=== PATIENT | male | born 1940 | race Caucasian/White ===

== ENCOUNTER 2018-11-07 12:52 | Outpatient (CLI) | payer MEDICARE ==
[~2018-11-07] VITALS: Ht 177.8 cm; Wt 104.4 kg
[2018-11-07] MEDS ORDERED: DOXA2TAB2 PO (13:12)
[2018-11-07] MEDS ORDERED: INSTAFLEX PO (13:12)
[2018-11-07] MEDS ORDERED: FISH1CAP15 PO (13:12)
[2018-11-07] MEDS ORDERED: AMLO10TA7 PO (13:12)
[2018-11-07] MEDS ORDERED: CIDE300T3 PO (13:12)
[2018-11-07] MEDS ORDERED: TURM500C4 PO (13:12)
[2018-11-07] MEDS ORDERED: LOSA1TAB26 PO (13:12)
[2018-11-07 13:25] VITALS: BP 130/73
[2018-11-07 14:19] LABS: BASOPHILS % (AUTO) 0 % (0-10); BILIRUBIN,URINE NEGATIVE (NEGATIVE); CLARITY,URINE CLEAR; COLOR,URINE YELLOW; EOSINOPHILS # (AUTO) 0.3 10^3/uL (0.0-0.3); EOSINOPHILS % (AUTO) 5 % (0-10); GLUCOSE, URINE (UA) NEGATIVE (NEGATIVE); HEMATOCRIT 38 % (40-54); HEMOGLOBIN 12.9 G/DL (13.3-17.7); KETONES,URINE NEGATIVE (NEGATIVE); LEUKOCYTE ESTERASE ,URINE NEGATIVE (NEGATIVE); LYMPHOCYTES # (AUTO) 1.2 X 10^3 (1.0-4.0); LYMPHOCYTES % (AUTO) 19 % (12-44); MEAN CORPUSCULAR HEMOGLOBIN 29 PG (25-34); MEAN CORPUSCULAR HGB CONC 34 G/DL (32-36); MEAN CORPUSCULAR VOLUME 87 FL (80-99); MEAN PLATELET VOLUME 10.5 FL (7.4-10.4); MONOCYTES # (AUTO) 0.7 X 10^3 (0.0-1.0); MONOCYTES % (AUTO) 11 % (0-12); NEUTROPHILS % (AUTO) 65 % (42-75); NITRITE,URINE NEGATIVE (NEGATIVE); PH,URINE 7 (5-9); PLATELET COUNT 168 10^3/uL (130-400); PROTEIN,URINE NEGATIVE (NEGATIVE); RED CELL DISTRIBUTION WIDTH 13.1 % (10.0-14.5); UROBILINOGEN,URINE NORMAL (NORMAL); WHITE BLOOD COUNT 6.2 10^3/uL (4.3-11.0)
[2018-11-07 14:34] LABS: PROTHROMBIN TIME PATIENT 13.3 SEC (12.2-14.7)
[2018-11-07 14:40] LABS: ALBUMIN 3.8 GM/DL (3.2-4.5); BILIRUBIN,TOTAL 0.4 MG/DL (0.1-1.0); CREATININE SERUM 1.44 MG/DL (0.60-1.30); TOTAL PROTEIN 6.8 GM/DL (6.4-8.2)
[2018-11-07 14:41] LABS: BACTERIA,URINE NEGATIVE /HPF; SQUAMOUS EPITHELIAL CELL,UR 0-2 /HPF
[2018-11-07 14:56] LABS: ERYTHROCYTE SEDIMENTATION RATE 13 MM/HR (0-30)
[2018-11-07] MEDS ORDERED: ALLO100T PO (15:12)
--- NOTE | 2018-11-07 17:01 | Diagnostic Imaging Report ---
INDICATION: Preop for right total knee replacement. TIME OF EXAM: 1:55 p.m. COMPARISON: Comparison is made with prior chest from 11/02/2007. The heart size is normal. The pulmonary vascularity is unremarkable. The lungs are clear. No infiltrate, effusion or pneumothorax is detected. IMPRESSION: No acute cardiopulmonary process is detected. Dictated by: Dictated on workstation # [id number]
== END 2018-11-07 15:00 | disposition home or self-care (01) ==
LOC: PREOP 12:52
PROVIDERS: ATTEND Orthopaedic Surgery
DX: Z01.812 Encounter for preprocedural laboratory examination (principal); Z01.811 Encounter for preprocedural respiratory examination; Z01.810 Encounter for preprocedural cardiovascular examination; M17.11 Unilateral primary osteoarthritis, right knee; R53.83 Other fatigue
CPT/HCPCS: 36415; 71046; 80053; 81000; 85025; 85610; 85652; 86850; 86900; 86901; 87081

== ENCOUNTER 2018-11-16 05:54 | Inpatient (IN) | payer MEDICARE ==
--- NOTE | 2018-11-06 16:41 | HISTORY AND PHYSICAL ---
DATE OF SERVICE: ADMISSION HISTORY AND PHYSICAL DATE OF ADMISSION: 11/16/2018. This will be for inpatient admission on 11/16/2018 for right total knee arthroplasty. The patient will require regular inpatient admission due to pain management, mobility issues and requirement for inpatient physical therapy. HISTORY OF PRESENT ILLNESS: The patient is a 78-year-old gentleman with progressively worsening right knee pain. He has undergone treatment with injections and arthroscopy without relief. He reports progressively worsening right medial knee pain with swelling and he reports activity limitations. He denies back pain. He denies paresthesias. He previously underwent a left total knee arthroplasty with good results. Due to functional impairment and failure to improve with conservative measures, the patient elected to proceed with surgical intervention. REVIEW OF SYSTEMS: No chest pain, no shortness of breath, no dysuria. PAST MEDICAL HISTORY: Varicose veins, hypertension, restless leg syndrome, left total knee arthroplasty, colon cancer, bilateral shoulder surgery. FAMILY HISTORY: Noncontributory. PRIMARY CARE PROVIDER: Dr. Maki. MEDICATIONS: 1. Hyzaar. 2. Verapamil. 3. Garlic oil. 4. Fish oil. 5. Losartan. 6. Verapamil. 7. Allopurinol. 8. Doxazosin. 9. Percocet. 10. Amlodipine. ALLERGIES: NORVASC AND BEE STINGS. SOCIAL HISTORY: The patient drinks 1 to 2 beers weekly. Denies tobacco use. RADIOGRAPHS: Reveal complete loss of medial joint space with moderate narrowing of his patellofemoral joint space. IMPRESSION: Right knee osteoarthritis radiographically. PHYSICAL EXAMINATION: GENERAL: The patient is a well-developed, well-nourished, in no acute distress. HEENT: Normocephalic and atraumatic. Pupils are equal, round and reactive to light. Oropharynx is clear. NECK: Supple, no lymphadenopathy. LUNGS: Clear to auscultation bilaterally. HEART: Regular rate and rhythm. ABDOMEN: Soft, nontender, nondistended. EXTREMITIES: The right knee demonstrates moderate effusions, tender along his medial joint line, has pain medially with Tomy's. Range of motion is 0/2/125. He has mild varus alignment and ambulates with an antalgic gait. There is no varus valgus laxity. Negative anterior and posterior drawer. IMPRESSION: Severe right knee osteoarthritis, unresponsive to conservative measures. PLAN: Right total knee arthroplasty. The risk, benefits, options, ramifications and recovery have been discussed at length with the patient. He understands and wishes to proceed. Job ID: [id number] DocumentID: [id number] Dictated Date: 11/06/2018 16:29:05 Metal Filer Date: 11/06/2018 16:41:21 Dictated By: TONY MATHEWS MD
--- NOTE | 2018-11-07 15:13 | NUR ---
PREOP SENT OVER A COPY OF THE PATIENTS MEDICATION LIST. I CALLED [facility] TO VERIFY THE PRESCRIPTIONS. [facility] FILLED: 10-24-18 DOXAZOSIN 2MG DAILY #90 10-24-18 AMLODIPINE 10MG DAILY #90 09-20-18 LOSARTAN HCTZ 100-12.5MG DAILY #90 09-20-18 ALLOPURINOL 100MG DAILY #90 OTC MEDICATIONS: FISH OIL 1200MG BID ORGANIC CIDER VINEGAR 1-2 TSP DAILY INSTAFLEX 1 CAP DAILY TURMERIC 500MG DAILY
[2018-11-16] VITALS (11 sets, daily range): BP systolic 109–168; BP diastolic 57–90
[~2018-11-16] VITALS: Ht 177.8 cm; Wt 102.5 kg
[~2018-11-16 05:54] MED LIST: ALLO100T PO; AMLO10TA7 PO; CIDE300T3 PO; DOXA2TAB2 PO; FISH1CAP15 PO; INSTAFLEX PO; LOSA1TAB26 PO; TURM500C4 PO
[2018-11-16] MEDS ORDERED: CEFUROXIME INJECTION 1,500 MG in WATER (STERILE) FOR INJECTION 15 ML IV ONE (06:30)
[2018-11-16] MEDS ORDERED: MIDAZOLAM 2 MG/2 ML (VERSED) VIAL ONE (06:41)
[2018-11-16] MEDS: LACTATED RINGERS 1,000 ML IV PRN ×2 (06:45→08:33)
[2018-11-16] MEDS ORDERED: fentaNYL INJECTION 100 MCG/2 ML AMP ONE (07:07)
[2018-11-16] MEDS ORDERED: DEXAMETHASONE 10 MG/ML (DECADRON) 1 ML VIAL ONE (07:07)
[2018-11-16] MEDS ORDERED: LIDOCAINE PF 2% 5 ML (XYLOCAINE) VIAL ONE ×2 (07:07→09:05)
[2018-11-16] MEDS ORDERED: proPOfol 200 MG/20 ML (DIPRIVAN) VIAL IV ONE (07:07)
[2018-11-16] MEDS ORDERED: ONDANSETRON 4 MG/2 ML (SDV) Z0FRAN ONE (07:07)
[2018-11-16] MEDS ORDERED: TRANEXAMIC ACID 100 MG/ML 10 ML INJECTION IV ONE (07:09)
[2018-11-16] MEDS ORDERED: SEVOFLURANE (ULTANE) 15 ML INHAL SOLN ONE ×5 (07:21→09:31)
[2018-11-16] MEDS ORDERED: OXYC1TAB87 PO (07:28)
[2018-11-16] MEDS ORDERED: diphenhydrAMINE 50 MG/ML INJ (BENADRYL) IVP PRN (07:30)
[2018-11-16] MEDS ORDERED: ACETAMINOPHEN 325 MG TABLET PO PRN (07:30)
[2018-11-16] MEDS ORDERED: INTRA-ARTICULAR IU ONE ×5 (07:30)
[2018-11-16] MEDS ORDERED: morphine PCA 100 MG/100 ML BAG IV PRN (07:30)
--- NOTE | 2018-11-16 07:30 | D/C HH Face to Face Order ---
D/C Face to Face Orders Reconcile Patient Problems Problems Reviewed?: Yes Instructions for Patient [facility], Patient Instructions/FollowUp: three weeks Physician to follow Patient: three weeks Discharge Diet for Home: No Restrictions, Regular Diet Patient Data-Allergies,Ht & Wt Patient Allergies: Coded Allergies: amlodipine (Verified Allergy, Severe, ANAPHYLAXIS, 11/07/18) Height (Feet): 5 Height (Inches): 10.00 Weight (Pounds): 226 Weight (Ounces): 1.0 Home Health Need/Face to Face Date of Face to Face: Nov 16, 2018 Clinical Findings: Instability, Muscle weakness, Pain with ambulation, Unsteady gait I have seen Pt [id number]: Yes Discharged To: Home Diagnosis/Conditions: right total knee arthroplasty Patient is Homebound due to: [place] fall risk due to instabilty, Muscle weakness, Pain w/ambulation Homebound Status Due to the above stated illness, injury or surgical procedure (medical condition or diagnosis) and associated clinical findings, the patient is homebound because of his/her inability to leave home except with aid of a phillips pportive device and/or person AND leaving the home requires a considerable and taxing effort or is medically contraindicated. Pt req the following assistanc: Walker Home Health Nursing Orders Home Health Services Order: Physical Therapy-Evaluate & Treat DC right knee jd and apply steri strips 11/30/18 Home Health Infusion Therapy Line Start Date: Nov 16, 2018 Therapy Orders Therapy Orders: Physical Therapy, PT to assess for OT Therapy Specific Orders: Eval assistive deivces, Teach enviro modifications/safety, Gait training, Increase strength/endurance, Provider maintenance therapy, Restore ROM Certify Stmt I certify that this patient is under my care and that I, a nurse practitioner or a physician; a construction project assistant working with me, had a face to face encounter that - meets the physician face to face encounter requirements with this patient as sagrario vee. TONY MATHEWS MD Nov 16, 2018 07:30
--- NOTE | 2018-11-16 07:32 | Progress Note-Pre Operative ---
Pre-Operative Progress Note H&P Reviewed The H&P was reviewed, patient examined and no changes noted. Date Seen by Provider: Nov 16, 2018 Time Seen by Provider: 07:15 Date H&P Reviewed: Nov 16, 2018 Time H&P Reviewed: 07:11 Pre-Operative Diagnosis: right knee primary osteoarthritis TONY MATHEWS MD Nov 16, 2018 07:32
--- NOTE | 2018-11-16 07:33 | Progress Note-Post Operative ---
Post-Operative Progess Note Surgeon (s)/Blending Tank Tender (s) Surgeon TONY MATHEWS MD Blending Tank Tender: Cornelius Godinez Pre-Operative Diagnosis right knee primary osteoarthritis Post-Operative Diagnosis right knee primary osteoarthritis Procedure & Operative Findings Date of Procedure 11/16/18 Procedure Performed/Findings right total knee arthroplasty Anesthesia Type GETA Estimated Blood Loss Estimated blood loss (mL): minimal Specimens/Packing Specimens Removed none Packing: none TONY MATHEWS MD Nov 16, 2018 07:32
[2018-11-16] MEDS ORDERED: fentaNYL INJECTION 100 MCG/2 ML AMP IVP ONE (08:30)
[2018-11-16] MEDS ORDERED: morphine INJ 10 MG/ML 1ML (SYR OR VIAL) IVP ONE (08:30)
[2018-11-16] MEDS ORDERED: ONDANSETRON 4 MG/2 ML (SDV) Z0FRAN IVP PRN (08:30)
[2018-11-16] MEDS ORDERED: MEPERIDINE (DEMEROL) INJ 50 MG/ML IVP ONE (08:30)
[2018-11-16] MEDS ORDERED: ROCURONIUM 10 MG/ML 5 ML SYRINGE IV ONE (09:05)
[2018-11-16] MEDS ORDERED: BUPIVACAINE 0.5% 30 ML (SENSORCAINE) VIAL ONE (09:06)
--- NOTE | 2018-11-16 10:16 | Diagnostic Imaging Report ---
Indication: Right knee replacement. Time of exam 9:50 AM 2 views right knee demonstrate postop changes of total knee arthroplasty. Prosthetic elements are in good position without fracture or loosening. Overlying skin jd are noted. Impression: Satisfactory postop appearance to the right knee. Dictated by: Dictated on workstation # [id number]
--- NOTE | 2018-11-16 10:41 | Progress Note ---
Standard Progress Note Progress Notes/Assess & Plan Date Seen by a Provider: Nov 16, 2018 Time Seen by a Provider: 10:37 Progress/Assessment & Plan post op check no complaints radiographs--HW well positioned without fracture RLE-- 2plus DP pulse with brisk cap refill. Intact DF and PF of toes and ankle. Intact sensation throughout s/p RTKA mobilize as able TONY MATHEWS MD Nov 16, 2018 10:41
--- NOTE | 2018-11-16 10:47 | NUR ---
OSCAR BOUDREAUX SR admitted to room OR-1, with an admitting diagnosis of POST OP RIGHT TOTAL KNEE REPLACEMENT, on 11/16/18 from surgery, accompanied by and recovery nurse Carolyne DOMINGUEZ .OSCAR BOUDREAUX SR introduced to surroundings, call light, bed controls, phone, TV, temperature control, lights, meal times, smoking policy, visitor policy, side rail policy, bathrooms and showers. Patient Rights given to patient in the handbook. OSCAR BOUDREAUX SR verbalizes understanding that [facility] is not responsible for the loss or damage to any personal effects or valuables that are kept in the patients posession during their hospitalization. The following Patient Care Plans and discharge plan were discussed with the patient . OSCAR BOUDREAUX SR verbalizes understanding of Interdisciplinary Patient Education. Patient and family were informed about the Rapid Response Team and its purpose.
[2018-11-16] MEDS ORDERED: PATIENT MAY USE OWN MEDS, ALL MC SCH (11:15)
[2018-11-16] MEDS: NS IV 1000 ML 1,000 ML IV SCH ×2 (11:35→17:40)
[2018-11-16] MEDS: SENNA W/DOCUSATE (SENOKOT S) TABLET PO SCH ×2 (11:35→20:25)
--- NOTE | 2018-11-16 11:37 | NUR ---
IRF Evaluation Order received to evaluate patient for the ARU. Awaiting therapy evaluation(s) in order to formulate a determination. Thank you for this referral.
--- NOTE | 2018-11-16 12:34 | OPERATIVE REPORT ---
DATE OF SERVICE: 11/16/2018 PREOPERATIVE DIAGNOSIS: Right knee primary osteoarthritis. POSTOPERATIVE DIAGNOSIS: Right knee primary osteoarthritis. PROCEDURE: Right total knee arthroplasty. SURGEON: Nick Mathews MD FLAG SIGNALER: Cornelius Godinez, who assisted throughout the procedure and closed the incision. ANESTHESIA: General endotracheal by Cornelius Coe CRNA. TOURNIQUET TIME: Approximately, 70 minutes at 300 mmHg. ESTIMATED BLOOD LOSS: Minimal. DRAINS: None. COMPLICATIONS: None. POSTOPERATIVE PLAN: Routine protocol. The patient was transported to the recovery room awake and in stable condition. MATERIALS: Microport cemented size 6 femur, cemented size 6+ tibia with a 10 mm insert and cemented size 35 patellar button. STATEMENT OF MEDICAL NECESSITY: The patient is a 78-year-old gentleman with longstanding progressive right knee pain. Radiographs revealed severe medial and patellofemoral arthrosis. He had undergone treatment with injections, anti-inflammatories and rest without relief. Due to functional impairment and failure to improve with conservative measures, the patient elected to proceed with surgical intervention. DESCRIPTION OF PROCEDURE: After risks and benefits of procedure were discussed and questions were answered, an informed consent was signed and placed on chart. The operative site was confirmed in the preoperative holding area initialed by the surgeon. The patient was then transported to the operating room and after adequate levels of general endotracheal anesthetic were obtained, a timeout was called confirming the operative site. The right lower extremity was prepped and draped in the usual sterile fashion with the leg elevated, tourniquet was inflated to 300 mmHg. Standard anterior approach was utilized. Hemostasis was obtained with cautery. Medial parapatellar arthrotomy was performed leaving 1 cm cuff on the patella for later reattachment. A portion of the fat pad was resected. A subperiosteal release was performed on the proximal medial tibia being careful to stay on the bony surface. The ACL was resected. Intramedullary guide was passed into the femur. The distal cutting block was placed and distal cut was made. Femur was sized to a size 6. 6 cutting block was placed parallel to the epicondylar axis and cuts were made from posterior to anterior. Subperiosteal release was then carefully performed on the posterior distal femur, being careful to stay on the bony surface. The intramedullary guide was then passed into the tibia. The cutting block was placed. The drop yony transected the intermalleolar axis and the cut was made. The 6+ baseplate was placed. The drop yony transected the intermalleolar axis and this was then prepared with the drill and keel punch. The femoral trial was placed and trochlear cut was made, 10 mm insert was placed. The patella was then prepared using the freehand technique by resecting 10 mm off the undersurface. A Peg guide was placed and peg holes were drilled. The patellar trial was placed. Knee was taken through range of motion. Full extension was easily obtained, 120 degrees of flexion with gravity was easily obtained. The patella tracked well. There was no anterior/posterior or medial/lateral laxity in flexion or extension. The trials were removed. The joint was copiously irrigated with pulse lavage. Periarticular block was placed in the posterior capsule, medial and lateral retinaculum extensor mechanism and subcutaneous tissues. The bone ends were irrigated and dried. The tibial baseplate was cemented into position. Excessive cement was removed. The superior surface was irrigated and dried and the polyethylene insert was placed. Distal femur was irrigated and dried and the femoral prosthesis was then cemented into position. Excessive cement was removed. The knee was brought in full extension until cement had cured. The undersurface of the patella was irrigated and dried. The patellar button was cemented into position. Excessive cement was removed. Once the cement had cured, the knee was taken through range of motion. Full extension was easily obtained, 120 degrees of flexion with gravity was easily obtained. There was no anterior/posterior or medial/lateral laxity in flexion or extension. The joint was further irrigated and the arthrotomy was closed with #2 Tevdek in [id number] interrupted fashion. Knee was flexed. The patella tracked well with no undue tension at the repair site. Subcutaneous tissues were irrigated using a total of 6 liters throughout the procedure. A 0 Vicryl was used for deep subcutaneous tissue, 2-0 Vicryl for the superficial subcutaneous tissue, jd used on the skin. A soft dressing was applied. The tourniquet was deflated and the patient was transported to the recovery room awake and in stable condition. Job ID: [id number] DocumentID: [id number] Dictated Date: 11/16/2018 09:30:38 Sugar Mixer Date: 11/16/2018 12:33:43 Dictated By: NICK MATHEWS MD
[2018-11-16] MEDS: oxyCODONE/APAP 5/325MG (PERCOCET 5) TABLET PO PRN ×2 (13:48→20:46)
--- NOTE | 2018-11-16 15:00 | Physical Therapy Evaluation ---
PT Evaluation-General Medical Diagnosis Admission Date Nov 16, 2018 at 05:54 Medical Diagnosis: right TKA Onset Date: Nov 16, 2018 Therapy Diagnosis Therapy Diagnosis: impaired mobility, strength, endurance, ROM Height/Weight Height (Feet): 5 Height (Inches): 10.00 Weight (Pounds): 226 Weight (Ounces): 1.0 Precautions Precautions/Isolations: Standard Precautions Weight Bear Status Right Lower Extremity: Right Weight Bearing/Tolerated Referral Physician: Cornelius Godinez Reason for Referral: Evaluation/Treatment Medical History Pertinent Medical History: HTN Additional Medical History varicose veins, shoulder surgery, Left TKA, RLS, colon CA Reviewed History: Yes Social History Home: Single Level Current Living Status: Spouse Entry Into Home: Stairs With Railing PT Steps Into Home: 7 Prior/Core FIM Prior Level of Function Therapy Code Descriptions/Definitions Functional [place] Measure: 0=Not Assessed/NA 4=Minimal Assistance 1=Total Assistance 5=Supervision or Setup 2=Maximal Assistance 6=Modified [place] 3=Moderate Assistance 7=Complete [place] Therapy Quality Codes: 6 Independent with activity with or without an assistive device 5 Patient requires set up or clean up by helper. Patient completes activity by themselves 4 Supervision or touching assist (CGA). [place] provide cues , steadying assist 3 The helper provides less than half the effort to complete the activity 2 The helper provides more than half the effort to complete the activity 1 Dependent. The helper does all the effort to complete an activity 7 Patient refused to complete or attempt activity 9 The patient did not perform the activity before the current illness or injury 88 Not attempted due to Medical conditions or safety concerns Functional Abilities and Goals: Independent: Patient completed the activities by him/herself, with or without an assistive device, with no assistance from a helper. Needed Some Help: Patient needed partial assistance from another person to complete activities. Dependent: A helper completed the activities for the patient. Unknown: Not Applicable: Bed Mobility: 6 Transfers (B,C,W/C) (FIM): 6 Gait: 6 Stairs: 6 Indoor Mobility (Ambulation): Independent Stairs: Independent Patient was using a SPC previously, sometimes a rolling walker PT Evaluation-Current Subjective Patient in bed pre tx, agrees to PT, has no complaints of pain at rest. Pt/Family Goals to be independent at home Objective Patient Orientation: Person, Place, Situation Attachments: Polar Pack, IV SCD's are donned but there is no machine to hook them up to ROM/Strength ROM Lower Extremities right knee flexion 80 degrees, extension +3 degrees Sensory Vision: Wears Glasses Hearing: Functional Sensation Right Lower Extremit: Intact Sensation Left Lower Extremity: Intact Transfers Therapy Code Descriptions/Definitions Functional [place] Measure: 0=Not Assessed/NA 4=Minimal Assistance 1=Total Assistance 5=Supervision or Setup 2=Maximal Assistance 6=Modified [place] 3=Moderate Assistance 7=Complete [place] Transfers (B, C, W/C) (FIM): 4 Scootin Rollin Supine to/from Sit: 5 Sit to/from Stand: 4 Patient dizzy upon sitting and standing, clears with a short rest break. Gait Mode of Locomotion: Walk Anticipated Mode of Locomotion: Walk Gait (FIM): 1 Distance: 8' Gait Level of Assist: 4 Gait Persons Needed: 1 Gait Assistive Device: FWW Comments/Gait Description Patient became light headed during ambulation after going about 4' and then went backwards to the bed to sit. He did have very good step through and heel strike bilaterally. Balance Sitting Static: Normal Sitting Dynamic: Normal Standing Static: Good Standing Dynamic: Good Treatment Supine TKA exercises x10 (AP, QS, HS, SAQ, SLR) Assessment/Needs Patient has impaired mobility, strength, endurance, ROM. He gets dizzy with supine to sit and standing. Patient in bed post tx with nurse call, phone, tray, CPM donned and fit to leg and set to 50/-2. Rehab Potential: Fair PT Short Term Goals Short Term Goals Time Frame: Nov 23, 2018 Transfers (B,C,W/C) (FIM): 5 Gait (FIM): 5 Gait Distance Comment: 150' Gait Level of Assist: 5 Gait Assistive Device: FWW PT Plan Problem List Problem List: Activity Tolerance, Functional Strength, Safety, Balance, Gait, Transfer, Bed Mobility, ROM Treatment/Plan Treatment Plan: Continue Plan of Care Treatment Plan: Bed Mobility, Education, Functional Activity Zachary, Functional Strength, Gait, Safety, Therapeutic Exercise, Transfers Treatment Duration: Nov 23, 2018 Frequency: 11 times per week Estimated Hrs Per Day: .25 hour per day Patient and/or Family Agrees t: Yes Safety Risks/Education Patient Education: Gait Training, Transfer Techniques, Reviewed Use of Ice, Correct Positioning, Safety Issues Teaching Recipient: Patient Teaching Methods: Demonstration, Discussion Response to Teaching: Reinforcement Needed Discharge Recommendations Plan Patient will perform bed mobility and transfer training, balance and endurance training, functional strengthening, stair training, gait training, and education, to improve functional mobility and independence at home. Therapy D/C Recommendations: Home w/ Family Support Time/GCodes Time In: 1425 Time Out: 1453 Total Billed Treatment Time: 18 Total Billed Treatment 1 visit JOHAN 18' POPEYE OLIVAREZ PT Nov 16, 2018 15:00
[2018-11-16] MEDS: ONDANSETRON 4 MG/2 ML (SDV) Z0FRAN IVP PRN ×2 (15:11→18:41)
[2018-11-16] MEDS: CEFUROXIME INJECTION 750 MG in WATER (STERILE) FOR INJECTION 10 ML IV SCH ×2 (15:12→22:37)
[2018-11-17] MEDS: NS IV 1000 ML 1,000 ML IV SCH ×2 (00:18→10:11)
[2018-11-17] MEDS: oxyCODONE/APAP 5/325MG (PERCOCET 5) TABLET PO PRN ×3 (02:04→16:42)
[2018-11-17 03:50] VITALS: BP 127/61
[2018-11-17] MEDS: MULTIVIT W/MINERALS TAB (THERAGRAN M) PO SCH (06:01)
[2018-11-17 06:03] LABS: HEMOGLOBIN 12.2 G/DL (13.3-17.7)
--- NOTE | 2018-11-17 07:58 | Progress Note ---
Standard Progress Note Progress Notes/Assess & Plan Date Seen by a Provider: Nov 17, 2018 Time Seen by a Provider: 07:52 Progress/Assessment & Plan POD1 Patient has no c/o. Reports mild nausea, but pain well controlled. Right knee incision well approximated with no warmth, erythema or drainage. Intact DF, PF and EHL. Calf soft/nontender with negative thelma's. Able to SLR and flex 50deg actively. VSS Impression: Doing well s/p Right TKA Plan: PT and mobilize DVT prophylaxix Dressing changed this morning Continue Zofran as needed for nausea Plan to D/C home tomorrow D/C IV today LENIN GARCIA Nov 17, 2018 07:58
[2018-11-17 08:00] VITALS: BP 123/63
[2018-11-17] MEDS: ASPIRIN E.C. 81 MG (ECOTRIN) TAB PO SCH ×2 (08:02→09:59)
[2018-11-17] MEDS: ENOXAPARIN 30 MG/0.3 ML (LOVENOX) SYR SC SCH ×2 (08:02→20:33)
[2018-11-17] MEDS: amLODIPine 10 MG (NORVASC) TAB PO SCH ×2 (08:03→08:10)
[2018-11-17] MEDS: SENNA W/DOCUSATE (SENOKOT S) TABLET PO SCH ×2 (08:03→20:29)
[2018-11-17] MEDS: doxAzosin 2 MG (CARDURA) TAB PO SCH ×2 (08:04→08:10)
[2018-11-17] MEDS: LOSARTAN HCTZ PO SCH ×2 (08:04→08:10)
[2018-11-17] MEDS: ALLOPURINOL 100 MG (ZYLOPRIM) TAB PO SCH ×2 (08:04→08:10)
[2018-11-17] MEDS: ONDANSETRON 4 MG/2 ML (SDV) Z0FRAN IVP PRN (08:31)
--- NOTE | 2018-11-17 10:06 | Physical Therapy Daily Note ---
PT Daily Note-Current Subjective Patient agrees to PT. Reports 6/10 right knee pain with meds issued. Pain Numeric Pain Scale: 6 Location: Right Location Body Site: Knee Pain Description: Acute Mental Status Patient Orientation: Normal For Age Attachments: IV Transfers Therapy Code Descriptions/Definitions Functional [place] Measure: 0=Not Assessed/NA 4=Minimal Assistance 1=Total Assistance 5=Supervision or Setup 2=Maximal Assistance 6=Modified [place] 3=Moderate Assistance 7=Complete [place] Therapy Quality Codes: 6 Independent with activity with or without an assistive device 5 Patient requires set up or clean up by helper. Patient completes activity by themselves 4 Supervision or touching assist (CGA). [place] provide cues , steadying assist 3 The helper provides less than half the effort to complete the activity 2 The helper provides more than half the effort to complete the activity 1 Dependent. The helper does all the effort to complete an activity 7 Patient refused to complete or attempt activity 9 The patient did not perform the activity before the current illness or injury 88 Not attempted due to Medical conditions or safety concerns Transfers (B, C, W/C) (FIM): 6 Scootin Supine to/from Sit: 6 Sit to/from Stand: 6 Bed to/from Chair: 6 Weight Bearing Right Lower Extremity: Right Weight Bearing/Tolerated Gait Training Gait (FIM): 6 Distance (FIM): 3=150 ft Distance: 250' Gait Level of Assist: 6 Gait Assistive Device: FWW functional, antalgic gait sequence Exercises Supine Ex: Ankle pumps, Quad Set, Heel Slides, Straight leg raise Supine Reps: 15 (2 sets) Seated Therapy Exercises: Long arc quads Seated Reps: 30 Assessment Patient tolerated treatment well and is up in recliner with needs met. Patient AROM 3-90 degrees in seated position. PT Short Term Goals Short Term Goals Time Frame: Nov 23, 2018 Transfers (B,C,W/C) (FIM): 5 Gait (FIM): 5 Gait Distance Comment: 150' Gait Level of Assist: 5 Gait Assistive Device: FWW PT Plan Treatment/Plan Treatment Plan: Continue Plan of Care Treatment Plan: Bed Mobility, Education, Functional Activity Zachary, Functional Strength, Gait, Safety, Therapeutic Exercise, Transfers Treatment Duration: Nov 23, 2018 Frequency: 11 times per week Estimated Hrs Per Day: .25 hour per day Patient and/or Family Agrees t: Yes Time/GCodes Time In: 850 Time Out: 915 Total Billed Treatment Time: 25 Total Billed Treatment 1 visit GT 10 min EX 15 min ABEBE HOOKS PT Nov 17, 2018 10:06
--- NOTE | 2018-11-17 10:21 | NUR ---
IRF According to PT note, patient is ambulating (250ft, RW) and transferring with modified independence; therefore, the patient does not require intensive therapies, at this time.
--- NOTE | 2018-11-17 10:38 | Anesthesia-General Post-Op ---
General Patient Condition Mental Status/LOC: Same as Preop Cardiovascular: Satisfactory Nausea/Vomiting: Absent Respiratory: Satisfactory Pain: Controlled Complications: Absent Post Op Complications Complications None Follow Up Care/Instructions Patient Instructions None needed. Anesthesia/Patient Condition Patient Condition Patient is doing well, no complaints, stable vital signs, no apparent adverse anesthesia problems. No complications reported per nursing. NORA ELLISON CRNA Nov 17, 2018 10:38
[2018-11-17 12:00] VITALS: BP 123/56
--- NOTE | 2018-11-17 12:25 | NUR ---
Initial visit with the pt's , Sarika. She said their son works with Dr. Kim, and feel a strong rapport with him. She said the same surgeon operated on the pt's other knee, and the healing process is encouraging right now. No spiritual affiliation discussed this visit.
--- NOTE | 2018-11-17 12:42 | Physical Therapy Daily Note ---
PT Daily Note-Current Subjective Patient agrees to PT. No c/o. Plans dismissal tomorrow a.m. Pain Numeric Pain Scale: 5-Moderate Pain Location: Right Location Body Site: Knee Pain Description: Acute Mental Status Patient Orientation: Normal For Age Attachments: IV Transfers Therapy Code Descriptions/Definitions Functional [place] Measure: 0=Not Assessed/NA 4=Minimal Assistance 1=Total Assistance 5=Supervision or Setup 2=Maximal Assistance 6=Modified [place] 3=Moderate Assistance 7=Complete [place] Therapy Quality Codes: 6 Independent with activity with or without an assistive device 5 Patient requires set up or clean up by helper. Patient completes activity by themselves 4 Supervision or touching assist (CGA). [place] provide cues , steadying assist 3 The helper provides less than half the effort to complete the activity 2 The helper provides more than half the effort to complete the activity 1 Dependent. The helper does all the effort to complete an activity 7 Patient refused to complete or attempt activity 9 The patient did not perform the activity before the current illness or injury 88 Not attempted due to Medical conditions or safety concerns Transfers (B, C, W/C) (FIM): 6 Scootin Supine to/from Sit: 6 Sit to/from Stand: 6 Weight Bearing Right Lower Extremity: Right Weight Bearing/Tolerated Gait Training Gait (FIM): 6 Distance (FIM): 3=150 ft Distance: 250' Gait Level of Assist: 6 Gait Assistive Device: FWW reciprocal pattern, functional gait sequence Exercises Supine Ex: Ankle pumps, Quad Set, Heel Slides, Straight leg raise Supine Reps: 15 Seated Therapy Exercises: Long arc quads Seated Reps: 15 Assessment Patient AROM WFL in supine. Progressing with treatment plan. PT Short Term Goals Short Term Goals Time Frame: Nov 23, 2018 Transfers (B,C,W/C) (FIM): 5 Gait (FIM): 5 Gait Distance Comment: 150' Gait Level of Assist: 5 Gait Assistive Device: FWW PT Plan Treatment/Plan Treatment Plan: Continue Plan of Care Treatment Plan: Bed Mobility, Education, Functional Activity Zach[place], Functional Strength, Gait, Safety, Therapeutic Exercise, Transfers Treatment Duration: Nov 23, 2018 Frequency: 11 times per week Estimated Hrs Per Day: .25 hour per day Patient and/or Family Agrees t: Yes Time/GCodes Time In: 1200 Time Out: 1216 Total Billed Treatment Time: 16 Total Billed Treatment 1 visit FA 16 min ABEBE HOOKS PT Nov 17, 2018 12:42
--- NOTE | 2018-11-17 12:50 | NUR ---
SALINE LOCK PATIENT PER ORDER AND IV FLUIDS AND PRIMARY CARE NURSE TO BE DISCONTINUED PER ORDER. MORPHINE 95ML WASTED AND VISUALIZED WITH DANIELLE DOMINGUEZ AT THIS TIME.
--- NOTE | 2018-11-17 12:50 | Occ Therapy Progress Note ---
Therapy Progress Note OT order received, chart reviewed. Pt. up in chair after working with PT. Spoke with pt. in depth regarding home set up and OT needs. Pt. reports that he has had other knee replaced, and has needed equipment at home. Pt. also reports that he had no difficulty getting out of bed today. Pt. states that his spouse can assist at home as well as needed. Pt. states that he does not need OT at this time. All needs met in room. Will continue to monitor as needed. 1, visit [id number] ALEJA MORTENSEN OT Nov 17, 2018 12:50
--- NOTE | 2018-11-17 13:55 | NUR ---
CM/SS, respond to consult post op for right total knee replacement. Patient declines any HHC and has DME for home use. He states that he had his left knee replaced already and did outpatient therapy at that time. He desires to self direct his care plan directly with Dr. Kim.
[2018-11-17 15:35] VITALS: BP 145/74
--- NOTE | 2018-11-17 16:47 | NUR ---
THIS RN NOTIFIED LENIN GARCIA CRNA ABOUT PATIENT'S COMPLAINT OF FIRM ABDOMEN AND NO BM ONLY PASSING GAS AT THIS TIME. THIS RN ASSESSED ABDOMEN AND IS VERY FIRM. RECEIVED TELEPHONE ORDER FOR DULCOLAX 5MG TABLET ONCE.
[2018-11-17] MEDS ORDERED: BISACODYL 5 MG (DULCOLAX) TABLET PO NR (17:00)
[2018-11-17 20:18] VITALS: BP 172/83
--- NOTE | 2018-11-17 21:27 | NUR ---
PT REPORTED SWELLING TO RIGHT LOWER EXTREMITY FOLLOWING INCIDENT THIS MORNING - PT GOT UP TO GO TO THE BATHROOM AND WHEN HE WENT TO SIT, HE DID NOT EXTEND THE RIGHT LOWER EXTREMITY. PT REPORTED SWELLING STARTED AFTER THIS. PT ALSO REPORTED HIS RIGHT LOWER EXTREMITY "DRAWING UP" AND JERKING. INCISION SITE CHECKED FOR BLEEDING AND STAPLE LINE ASSESSED. STAPLE LINE INTACT, DRESSING DRY AND INTACT. CALLED MARIAM DONAHUE AND RECEIVED ORDER FOR FLEXERIL 5MG PO [id number] PRN MUSCLE SPASMS. ORDER PLACED BY THIS RN.
[2018-11-17] MEDS ORDERED: CYCLOBENZAPRINE 10 MG (FLEXERIL) TAB PO PRN (21:30)
[2018-11-18 00:08] VITALS: BP 129/69
--- NOTE | 2018-11-18 01:18 | DISCHARGE SUMMARY ---
DATE OF SERVICE: DIAGNOSES: 1. Right knee primary osteoarthritis. 2. Hypertension. 3. Restless legs syndrome. 4. Colon cancer. PROCEDURE: Right total knee arthroplasty. SUMMARY: The patient is a 78-year-old gentleman who underwent a right total knee arthroplasty on the day of admission. Postoperatively, he did very well. At the time of discharge, his wound was clean and dry. He was tolerating his diet well and tolerating pain with oral pain medication. CONDITION AT DISCHARGE: Good. ACTIVITIES: Weightbearing as tolerated with assistive devices as needed. DISCHARGE DIET: Regular diet. FOLLOWUP: Followup is in three weeks. HOME MEDICATIONS: Aspirin and Percocet as needed for pain. Job ID: [id number] DocumentID: [id number] Dictated Date: 11/17/2018 17:25:48 Accountant Helper Date: 11/18/2018 01:17:52 Dictated By: TONY MATHEWS MD
[2018-11-18] MEDS: oxyCODONE/APAP 5/325MG (PERCOCET 5) TABLET PO PRN ×2 (02:05→06:25)
[2018-11-18 04:23] VITALS: BP 159/71
[2018-11-18 05:33] LABS: HEMOGLOBIN 10.9 G/DL (13.3-17.7)
[2018-11-18] MEDS: MULTIVIT W/MINERALS TAB (THERAGRAN M) PO SCH (06:25)
[2018-11-18] MEDS: ENOXAPARIN 30 MG/0.3 ML (LOVENOX) SYR SC SCH (06:43)
--- NOTE | 2018-11-18 07:00 | NUR ---
DR. MATHEWS HERE AT THIS TIME TO ASSESS PT AND APPLY DRESSING CHANGE TO RIGHT LOWER EXTREMITY. TWO PRESCRIPTIONS FOR PAIN MEDICATION HANDED TO PT BY DR. MATHEWS. ORDER RECEIVED FOR MILK OF MAGNESIA PO 30ML ONE TIME DOSE. ORDER PLACED BY THIS RN.
[2018-11-18] MEDS ORDERED: MILK OF MAGNESIA 400 MG/5 ML 30 ML UDC PO NR (07:07)
--- NOTE | 2018-11-18 07:07 | Progress Note ---
Standard Progress Note Progress Notes/Assess & Plan Date Seen by a Provider: Nov 18, 2018 Time Seen by a Provider: 07:06 Progress/Assessment & Plan post op check no complaints radiographs--HW well positioned without fracture RLE-- 2plus DP pulse with brisk cap refill. Intact DF and PF of toes and ankle. Intact sensation throughout s/p RTKA mobilize as able Final Diagnosis no complaints Vital Signs Date Time Temp Pulse Resp B/P (MAP) Pulse Ox O2 Delivery O2 Flow Rate FiO2 11/18/18 04:23 97.6 70 16 159/71 (100) 97 Room Air 11/18/18 00:08 97.7 71 18 129/69 (89) 91 Room Air 11/17/18 21:00 20 11/17/18 21:00 Room Air 11/17/18 20:18 100.1 84 20 172/83 (112) 95 Room Air 11/17/18 15:35 98.8 77 20 145/74 (97) 96 Room Air 11/17/18 12:00 98.5 75 20 123/56 (78) 93 Room Air 11/17/18 09:54 Room Air 11/17/18 08:00 96.7 74 18 123/63 (83) 95 Room Air I & O 11/18/18 07:00 Intake Total 1270 ml Output Total 1100 ml Balance 170 ml Laboratory Tests Test 11/18/18 05:00 Range/Units Hemoglobin 10.9 L 13.3-17.7 G/DL Hematocrit 34 L 40-54 % RLE--incision clean and dry. No calf tenderness. Neg Selam's able to perform SLR with minimal assistance s/p RTKA doing well PT today DC after PT TONY MATHEWS MD Nov 18, 2018 07:07
[2018-11-18] MEDS ORDERED: morphine INJ 4 MG/ML 1 ML (VIAL/SYRINGE) IVP PRN (07:15)
[2018-11-18 07:49] VITALS: BP 136/63
[2018-11-18] MEDS: ASPIRIN E.C. 81 MG (ECOTRIN) TAB PO SCH (07:49)
[2018-11-18] MEDS: SENNA W/DOCUSATE (SENOKOT S) TABLET PO SCH (07:50)
[2018-11-18 07:59] VITALS: BP 101/56
--- NOTE | 2018-11-18 09:23 | Physical Therapy Daily Note ---
PT Daily Note-Current Subjective Patient reports he is ready to go home. Agrees to PT. Pain Numeric Pain Scale: 5-Moderate Pain Location: Right Location Body Site: Knee Pain Description: Acute Mental Status Patient Orientation: Normal For Age Transfers Therapy Code Descriptions/Definitions Functional [place] Measure: 0=Not Assessed/NA 4=Minimal Assistance 1=Total Assistance 5=Supervision or Setup 2=Maximal Assistance 6=Modified [place] 3=Moderate Assistance 7=Complete [place] Therapy Quality Codes: 6 Independent with activity with or without an assistive device 5 Patient requires set up or clean up by helper. Patient completes activity by themselves 4 Supervision or touching assist (CGA). [place] provide cues , steadying assist 3 The helper provides less than half the effort to complete the activity 2 The helper provides more than half the effort to complete the activity 1 Dependent. The helper does all the effort to complete an activity 7 Patient refused to complete or attempt activity 9 The patient did not perform the activity before the current illness or injury 88 Not attempted due to Medical conditions or safety concerns Transfers (B, C, W/C) (FIM): 6 Scootin Sit to/from Stand: 6 Weight Bearing Right Lower Extremity: Right Weight Bearing/Tolerated Gait Training Gait (FIM): 6 Distance (FIM): 3=150 ft Distance: 275' Gait Level of Assist: 6 Gait Assistive Device: FWW steady, antalgic gait sequence Exercises Supine Ex: Ankle pumps, Quad Set, Heel Slides Supine Reps: 12 Seated Therapy Exercises: Long arc quads Seated Reps: 15 Assessment Patient has attained all functional goals and is safe to dismiss to home at this time. PT Short Term Goals Short Term Goals Time Frame: Nov 23, 2018 Transfers (B,C,W/C) (FIM): 5 Gait (FIM): 5 Gait Distance Comment: 150' Gait Level of Assist: 5 Gait Assistive Device: FWW PT Plan Treatment/Plan Treatment Plan: Discontinue PT, goals met Treatment Plan: Bed Mobility, Education, Functional Activity [place], Functional Strength, Gait, Safety, Therapeutic Exercise, Transfers Treatment Duration: Nov 23, 2018 Frequency: 11 times per week Estimated Hrs Per Day: .25 hour per day Patient and/or Family Agrees t: Yes Time/GCodes Time In: 750 Time Out: 804 Total Billed Treatment Time: 14 Total Billed Treatment 1 visit FA 14 min ABEBE HOOKS PT Nov 18, 2018 09:23
[2018-11-18 10:10] VITALS: BP 106/52
--- NOTE | 2018-11-18 10:10 | NUR ---
OSCAR BOUDREAUX SR demonstrates understanding of discharge instructions and accurately returns instructions upon questioning. Copy of Post-Discharge Instructions given to . OSCAR BOUDREAUX SR is able to manage continuing needs after discharge. Patients belongings returned to pt. Patient discharged from [id number] on 11/18/18 at 10:10. OSCAR BOUDREAUX SR left floor via w/c, accompanied by staff and per auto.
[2018-11-18] MEDS: amLODIPine 10 MG (NORVASC) TAB PO SCH (11:01)
[2018-11-18] MEDS: doxAzosin 2 MG (CARDURA) TAB PO SCH (11:01)
[2018-11-18] MEDS: ALLOPURINOL 100 MG (ZYLOPRIM) TAB PO SCH (11:01)
[2018-11-18] MEDS: LOSARTAN HCTZ PO SCH (11:02)
--- NOTE | 2018-11-18 11:45 | NUR ---
FAXED ORDER'S TO [facility]. NOTIFIED PT. THAT THIS NURSE FAXED HIS PT ORDER'S.
== END 2018-11-18 10:10 | disposition home or self-care (01) | DRG 470 ==
LOC: 4TH 05:54 → SURG 05:55 → 4TH 10:38
PROVIDERS: ADMIT Orthopaedic Surgery; ATTEND Orthopaedic Surgery
PROC: 0SRC0J9 Replacement of Right Knee Joint with Synthetic Substitute, Cemented, Open Approach (ICD-10-PCS; principal; 2018-11-16 07:31)
DX: M17.11 Unilateral primary osteoarthritis, right knee (principal); I10 Essential (primary) hypertension; G25.81 Restless legs syndrome; I83.90 Asymptomatic varicose veins of unspecified lower extremity; Z85.038 Personal history of other malignant neoplasm of large intestine; Z96.652 Presence of left artificial knee joint
CPT/HCPCS: 36415; 73560; 85014; 85018; 86850; 86900; 86901; 94664